=== PATIENT | male | born 1935 | race Caucasian/White ===

== ENCOUNTER 2017-03-11 17:05 | Inpatient (IN) ==
[2017-03-11] MEDS ORDERED: ASPIRIN PO STA (17:23)
[2017-03-11 17:46] LABS: MANUAL DIFF NEEDED? NO
[2017-03-11] MEDS ORDERED: ROCEPHIN 1 GM/NS 1 GM/50 ML IVPB IV ONE (17:46)
[2017-03-11 17:50] LABS: BASO% 0.3 % (0.0-0.8); EOS# 0.14 X1000 (0.0-0.7); EOS% 1.2 % (0.0-10.0); HEMATOCRIT 42.1 % (42.0-52.0); LYMPH# 1.42 X1000 (1.2-3.4); LYMPH% 11.9 % (20.5-51.1); MCHC 33.3 g/dL (33-37); MCV 93.1 FL (81-99); MONO# 0.86 X1000 (0.11-0.59); MONO% 7.2 % (1.7-9.3); MPV 10.6 FL (7.4-10.4); NEUT% 79.4 % (42.2-75.2); PLT 178 X1000 (130-400); RBC 4.52 XMIL (4.7-6.1)
--- NOTE | 2017-03-11 17:56 | Diag Imaging Result Doc PS360 ---
EXAM: CHEST-PORTABLE - 03/11/2017 HISTORY: sob TECHNIQUE: Portable chest 1735 COMPARISON: 01/21/2013 FINDINGS: Heart size is normal. There is a transvenous cardiac pacemaker. There is stable mild tortuosity of the thoracic aorta. There is apparent atelectasis or infiltrate in the medial right base. There is no pleural effusion or pneumothorax identified. There are COPD/emphysematous changes with mildly hyperexpanded lungs. IMPRESSION: COPD/emphysematous changes with mildly hyperexpanded lungs. Apparent atelectasis or infiltrate at medial right base. Electronically signed by Ulysses Ewing 03/11/2017 5:54 PM
[2017-03-11 17:58] LABS: INR 1.8; PROTIME 19.6 Seconds (9.2-11.7); PTT 34.8 Seconds (22.0-36.0)
[2017-03-11 18:08] LABS: AGAP 14; ALBUMIN 4.2 g/dL (3.5-5.0); ALKALINE PHOSPHATASE 64 U/L (32-122); BUN 17 mg/dL (8-22); CHLORIDE 98 mmol/L (98-107); CK PROFILE 61 U/L (24-204); COSMO 279; GOT 13 U/L (10-34); GPT 12 U/L (10-44); MAGNESIUM 1.8 mg/dL (1.5-2.7); POTASSIUM 4.1 mmol/L (3.5-5.1); SODIUM 139 mmol/L (136-145); TCO2 27 mmol/L (25-35); TOTAL BILIRUBIN 0.93 mg/dL (0.20-1.00); TOTAL PROTEIN 7.6 g/dL (6.3-8.3)
[2017-03-11 18:36] LABS: ALLEN TEST YES; BLOOD TYPE ARTERIAL; DRAW SITE R RADIAL; O2(CT) 17.6 mL/dL (15.0-23.0); PCO2(98.6) 45 mmHg (35-45); PO2(98.6) 74 mmHg (60-100); SAMPLE BLOOD; SAO2 97.9 % (95.0-100.0); THB 13.1 g/dL (11.5-17.4); pH(98.6) 7.42 (7.35-7.45)
[2017-03-11 18:37] LABS: MODALITY CANNULA
[2017-03-11] MEDS ORDERED: ZITHROMAX 500 MG/NS 500 MG/250 ML IVPB IV ONE (18:39)
[2017-03-11] MEDS ORDERED: DUONEB (A & A) INH ONE (18:40)
[2017-03-11] MEDS ORDERED: SOLU-MEDROL IV ONE (18:40)
--- NOTE | 2017-03-11 21:35 | HISTORY AND PHYSICAL ---
PRIMARY CARE PHYSICIAN: Dr. Abiodun Love CHIEF COMPLAINT: Dyspnea and cough. HISTORY OF PRESENT ILLNESS: Mr. Valero is an 81-year-old male with past medical history of hypertension, hyperlipidemia, atrial fibrillation on Coumadin, BPH, COPD not oxygen dependent and GERD, who comes to the hospital complaining of dyspnea that started this morning. According to the patient, his started coughing a couple of days ago, and today at 3:00 in the morning, the patient woke up with shortness of breath and coughing. Throughout the day, the patient noticed that he was unable to go up the stairs without feeling short of breath. The patient usually walks up to 4 miles with no issues. Therefore, he decided to be checked at Urgent Care. However, his oxygen saturation was 81% and had a temperature of 101.7, and the physician decided to send him to the hospital for further evaluation. The patient states that other than feeling short of breath, weak and dizzy on exertion, he has no other complaints. REVIEW OF SYSTEMS: Negative except as stated above. In the emergency room, the patient was given Rocephin, azithromycin and Solu Medrol. PAST MEDICAL HISTORY: Atrial fibrillation on Coumadin, hypertension, hyperlipidemia, BPH, COPD not oxygen dependent, GERD. PAST SURGICAL HISTORY: Rotator cuff repair in 1979, left elbow surgery last year. ALLERGIES: None. HOME MEDICATIONS: 1. Simvastatin 20 mg tablet oral daily. 2. Omeprazole 20 mg tablet oral daily. 3. Sotalol 80 mg twice a day. 4. Tamsulosin 0.4 mg tablet oral daily. 5. Warfarin 4 mg tablet oral daily. 6. Finasteride 10 mg tablet oral daily. 7. Albuterol 18 g HFA 2 puffs via inhalation every 4 hours p.r.n. FAMILY HISTORY: There is a strong family history on his father's side of [place]. SOCIAL HISTORY: The patient stopped smoking in 1973. He does not drink alcohol and denies using any illicit drugs. DIAGNOSTIC DATA: White blood cell count is 11.9, hemoglobin 14, hematocrit 42, platelets 178. Sodium is 139, potassium 4, BUN is 17, creatinine 0.9. Hepatic panel within normal limits. Troponin negative. INR is 1.8. Chest x-ray shows a possible infiltrate in the right lower lobe. EKG shows sinus rhythm. PHYSICAL EXAMINATION: VITAL SIGNS: Temperature is 101.7, pulse 85, respirations 23, blood pressure 158/93, oxygen saturation 95% on 2 L oxygen. GENERAL: The patient is alert and oriented x3. No acute distress. HEENT: Head is normocephalic and atraumatic. Eyes: PERRL. Moist mucous membranes. NECK: Supple. No JVD. PULMONARY: Well ventilated bilaterally. Minimal scattered wheezing in all lung wang. Good air movement. CARDIOVASCULAR: S1, S2. No rubs, murmurs or gallops. ABDOMEN: Soft, nontender and nondistended. EXTREMITIES: No lower extremity edema. NEUROLOGICAL: Cranial nerves II through XII grossly intact. No focal deficits. PSYCHIATRIC: Normal mood and affect. ASSESSMENT AND PLAN: 1. Pneumonia. Given the patient's history of having a sick contact at home and with his chest x- ray, it is likely that the patient has a pneumonia which is triggering a COPD exacerbation. Therefore, the patient will be continued on ceftriaxone, and he will be started on doxycycline to cover atypicals. The patient is on oxygen at the moment. We will wean his O2 requirement as tolerated. 2. Chronic obstructive pulmonary disease exacerbation. As mentioned above, the patient is on 2 antibiotics, and we will provide DuoNebs p.r.n. and Solu Medrol. 3. Paroxysmal atrial fibrillation. The patient's INR is slightly subtherapeutic. At the moment we will continue his regular dose of 4 mg. We will continue checking INR daily, and also the patient's home medication of sotalol 80 mg twice a day will be continued. 4. Benign prostatic hypertrophy. We will continue the patient's home medications of tamsulosin and finasteride. 5. Gastroesophageal reflux disease. We will continue home medication of omeprazole. cc: Yesica Conde MD
[2017-03-11] MEDS: BETAPACE PO SCH (22:15)
[2017-03-11] MEDS: COUMADIN PO SCH (22:18)
[2017-03-11] MEDS: PROSCAR PO SCH (22:19)
[2017-03-11] MEDS: ZOCOR PO SCH (22:20)
[2017-03-11] MEDS: DUONEB (A & A) INH SCH (23:00)
[2017-03-11] MEDS ORDERED: TYLENOL PO PRN (23:15)
[2017-03-12] MEDS: DOXYCYCLINE 100 MG in NS 250 ML IV SCH ×2 (00:42→11:58)
[2017-03-12] MEDS: FLOMAX PO SCH ×2 (00:42→22:08)
[2017-03-12] MEDS: DUONEB (A & A) INH SCH ×6 (04:25→22:30)
[2017-03-12 06:13] LABS: INR 1.82; PROTIME 19.9 Seconds (9.2-11.7)
[2017-03-12] MEDS: PRILOSEC PO SCH (06:31)
[2017-03-12] MEDS: BETAPACE PO SCH ×2 (08:39→22:08)
[2017-03-12] MEDS: SOLU-MEDROL IV SCH ×2 (08:39→15:30)
[2017-03-12] MEDS ORDERED: FLOMAX PO SCH (09:00)
[2017-03-12] MEDS: ROCEPHIN 1 GM/NS 1 GM/50 ML IVPB IV SCH (15:31)
--- NOTE | 2017-03-12 16:33 | PROGRESS NOTE ---
DATE: 03/12/2017 SUBJECTIVE: This is an 81-year-old who presented with dyspnea and cough, past medical history of hypertension, hyperlipidemia, history of atrial fibrillation, on Coumadin, benign prostatic hypertrophy, COPD and oxygen dependent, gastroesophageal reflux. Comes in the hospital with complaints of dyspnea that started in the morning. According the patient's , started coughing a couple of days ago and then at 3 o'clock this morning woke up, shortness of breath and coughing throughout the day. Noticed he was unable go up stairs without feeling really short of breath. Previously walked about 4 miles with no issues. Decided to urgent care. His oxygen saturation was 81%. Temperature was a 101 degrees. Decided to come here to the hospital. He was admitted with pneumonia, triggering COPD exacerbation. He is fine at rest, but with exertion pretty short of breath. ASSESSMENT AND PLAN: 1. He was put on ceftriaxone and doxycycline and he is on bronchodilators and ceftriaxone 1 g daily. He is on methylprednisone 60 mg IV q.8 hours. Getting albuterol and Atrovent treatments. Also on azithromycin to cover for atypicals. 2. He is on Coumadin for atrial fibrillation and sedimentation rate appears controlled. His ProTime was 19.6. 3. He has a history of hypertension, hyperlipidemia, underlying COPD, but he is not oxygen dependent, gastroesophageal reflux disease. I think I will add a steroid inhaler. Stop his azithromycin and see if we can add some guaifenesin to help with the mucus secretions. cc: Yuri Salvador MD
[2017-03-12] MEDS: NS 1,000 ML IV SCH (17:01)
[2017-03-12] MEDS: ADVAIR 500/50 DISKUS INH SCH (19:45)
[2017-03-12] MEDS: MUCINEX PO SCH (22:07)
[2017-03-12] MEDS: COUMADIN PO SCH (22:08)
[2017-03-12] MEDS: ZOCOR PO SCH (22:08)
[2017-03-12] MEDS: PROSCAR PO SCH (22:08)
[2017-03-13] MEDS: SOLU-MEDROL IV SCH ×3 (00:40→15:35)
[2017-03-13] MEDS: DUONEB (A & A) INH SCH ×6 (02:58→22:32)
[2017-03-13] MEDS: PRILOSEC PO SCH ×2 (05:41→07:40)
[2017-03-13] MEDS: NS 1,000 ML IV SCH ×2 (05:41→18:03)
[2017-03-13 06:14] LABS: INR 2.37; PROTIME 26.3 Seconds (9.2-11.7)
[2017-03-13] MEDS: ADVAIR 500/50 DISKUS INH SCH ×2 (07:59→19:22)
[2017-03-13] MEDS: MUCINEX PO SCH ×2 (09:13→20:46)
[2017-03-13] MEDS: BETAPACE PO SCH ×2 (09:13→20:46)
--- NOTE | 2017-03-13 09:17 | PROGRESS NOTE ---
DATE: 03/13/2017 He does feel better. The cough is looser. Lungs are clear and he can tell a difference. PHYSICAL EXAMINATION: Vital signs: Temperature 98.6 degrees, pulse 60, respirations 17, blood pressure 143/73. Lungs: Are clear in all lung wang. Cardiovascular: Regular rhythm and rate without murmur or S3. Abdomen: Soft. Skin is warm and dry. Urine output is 5000 mL. LAB: Looks good from the 5th. Will repeat lab and a chest x-ray again in the morning. ASSESSMENT AND PLAN: 1. Pneumonia. He is on ceftriaxone. I stopped the doxycycline. Some bronchodilators and he is getting methylprednisone which I think we can taper tomorrow. I started him on a steroid inhaler. Clinically much better. We will check a chest x-ray again tomorrow. 2. He is on Coumadin for atrial fibrillation. Rate is controlled. ProTime was 19.6, will follow. 3. Hypertension. Blood pressure well controlled. General nutrition looks good. 4. Review of his orders, he is on Betapace 80 mg twice a day for his atrial fibrillation and he is on Coumadin 4 mg at bedtime. At present time getting normal saline at 75 mL an hour. We have him on ceftriaxone 1 g daily. 5. I also should mention benign prostatic hypertrophy for which he is on Proscar daily and no new no new complaints in that regard. cc: Yuri Salvador MD
[2017-03-13] MEDS ORDERED: BLISTEX MEDICATED BERRY LIP BALM TOP PRN (11:12)
[2017-03-13] MEDS: ROCEPHIN 1 GM/NS 1 GM/50 ML IVPB IV SCH (15:35)
[2017-03-13] MEDS: ZOCOR PO SCH (20:45)
[2017-03-13] MEDS: COUMADIN PO SCH (20:45)
[2017-03-13] MEDS: PROSCAR PO SCH (20:46)
[2017-03-13] MEDS: FLOMAX PO SCH (20:46)
[2017-03-14] MEDS: SOLU-MEDROL IV SCH ×3 (02:15→20:33)
[2017-03-14] MEDS: DUONEB (A & A) INH SCH ×6 (03:57→22:56)
[2017-03-14] MEDS: PRILOSEC PO SCH ×2 (05:44→06:08)
[2017-03-14 05:57] LABS: HEMATOCRIT 36.5 % (42.0-52.0); HEMOGLOBIN 11.9 g/dL (14.0-18.0); IMM GRAN# 0.04 X1000 (0.0-0.04); IMM GRAN% 0.3 % (0.0-0.5); LYMPH# 0.72 X1000 (1.2-3.4); LYMPH% 4.6 % (20.5-51.1); MANUAL DIFF NEEDED? YES; MCH 30.5 PG (27-31); MCHC 32.6 g/dL (33-37); MCV 93.6 FL (81-99); MONO# 0.55 X1000 (0.11-0.59); MONO% 3.5 % (1.7-9.3); MPV 11.3 FL (7.4-10.4); NEUT% 91.6 % (42.2-75.2); PLT 174 X1000 (130-400)
[2017-03-14 05:58] LABS: INR 2.82; PROTIME 31.6 Seconds (9.2-11.7)
[2017-03-14 06:20] LABS: AGAP 10; BUN 18 mg/dL (8-22); CALCIUM 8.5 mg/dL (8.8-10.2); CHLORIDE 106 mmol/L (98-107); COSMO 289; MAGNESIUM 2.1 mg/dL (1.5-2.7); POTASSIUM 3.9 mmol/L (3.5-5.1); SODIUM 143 mmol/L (136-145); TCO2 27 mmol/L (25-35)
[2017-03-14 07:23] LABS: BANDS 4 % (0-1); LYMPHS 2 % (21-51); MONO 2 % (1-9)
[2017-03-14] MEDS: ADVAIR 500/50 DISKUS INH SCH ×2 (07:33→19:45)
--- NOTE | 2017-03-14 08:12 | Diag Imaging Result Doc PS360 ---
EXAM: CHEST-2 VIEWS HISTORY: pneumonia TECHNIQUE: Two views of the chest COMMENT: There is COPD. There is subsegmental atelectasis in the lingula. This was not apparent on 03/11/2017. IMPRESSION: Lingular atelectasis. COPD. Electronically signed by Matthew Marmolejo 03/14/2017 8:10 AM
[2017-03-14] MEDS: BETAPACE PO SCH ×2 (08:40→20:34)
[2017-03-14] MEDS: MUCINEX PO SCH ×2 (08:40→20:33)
[2017-03-14] MEDS: NS 1,000 ML IV SCH (08:49)
--- NOTE | 2017-03-14 15:14 | PROGRESS NOTE ---
DATE: 03/14/2017 SUBJECTIVE: This patient feels better. He is complaining of shortness of breath with physical activity. He has never been on oxygen at home before. He has scattered wheezing. He is on steroids IV but I will decrease the dose. OBJECTIVE: Vital Signs: Temperature 97.6 degrees, pulse 71, respiratory rate 16, blood pressure 156/70. O2 saturation 86 on room air and 95 on 2 L of nasal cannula. HEENT: Head normocephalic. No trauma. PERRLA. Neck: Supple. No JVD. No masses. Central trachea. Chest: Decreased breath sounds globally. Prolonged expiratory phase with scattered wheezing. Abdomen: Soft, nontender, nondistended. No hepatosplenomegaly. Extremities: No edema. No clubbing. No cyanosis. Neurological: The patient is alert and oriented x3. No focal neurological deficits. LABORATORY: WBC 15.6, hemoglobin 11.9, hematocrit 36.5, platelets 174,000. Sodium 143, potassium 3.9, chloride 106, bicarbonate 27, BUN 18, creatinine 0.8, glucose 143, calcium 8.5, magnesium 2.1. ASSESSMENT AND PLAN: 1. Pneumonia. Continue with antibiotics. This patient is on ceftriaxone and azithromycin. 2. COPD with mild exacerbation. This patient has been placed on steroids. I will decrease the dose from 60 q.8 hours to 40 q.12 hours and probably I will discharge this patient home with steroids. His O2 saturation without oxygen is around 86. I will re-evaluate this patient tomorrow to decide if this patient needs to go home with oxygen. 3. Atrial fibrillation, continue with Coumadin rate control. INR is therapeutic. 4. Hypertension. Blood pressure is controlled. Today he had and just 1 episode of increased blood pressure but otherwise he has been stable. 5. BPH. Continue with the same treatment. cc: Darrius Stauffer MD
[2017-03-14] MEDS: ROCEPHIN 1 GM/NS 1 GM/50 ML IVPB IV SCH (16:51)
[2017-03-14] MEDS: ZITHROMAX 500 MG/NS 500 MG/250 ML IVPB IV SCH (18:43)
[2017-03-14] MEDS: COUMADIN PO SCH (20:33)
[2017-03-14] MEDS: FLOMAX PO SCH (20:34)
[2017-03-14] MEDS: ZOCOR PO SCH (20:34)
[2017-03-14] MEDS: PROSCAR PO SCH (20:34)
[2017-03-15] MEDS: DUONEB (A & A) INH SCH ×6 (03:18→23:25)
[2017-03-15 06:12] LABS: HEMATOCRIT 37.8 % (42.0-52.0); HEMOGLOBIN 12.5 g/dL (14.0-18.0); IMM GRAN# 0.05 X1000 (0.0-0.04); IMM GRAN% 0.4 % (0.0-0.5); LYMPH# 0.84 X1000 (1.2-3.4); LYMPH% 7.4 % (20.5-51.1); MANUAL DIFF NEEDED? YES; MCH 30.8 PG (27-31); MCHC 33.1 g/dL (33-37); MCV 93.1 FL (81-99); MONO# 0.55 X1000 (0.11-0.59); MONO% 4.8 % (1.7-9.3); NEUT% 87.4 % (42.2-75.2); PLT 174 X1000 (130-400); RBC 4.06 XMIL (4.7-6.1)
[2017-03-15 06:31] LABS: AGAP 11; BUN 15 mg/dL (8-22); CALCIUM 8.1 mg/dL (8.8-10.2); CHLORIDE 105 mmol/L (98-107); COSMO 289; POTASSIUM 3.9 mmol/L (3.5-5.1); SODIUM 144 mmol/L (136-145); TCO2 28 mmol/L (25-35)
[2017-03-15] MEDS: NS 1,000 ML IV SCH (06:55)
[2017-03-15] MEDS: PRILOSEC PO SCH (06:56)
[2017-03-15] MEDS: BETAPACE PO SCH ×2 (06:56→18:42)
[2017-03-15 07:17] LABS: LYMPHS 10 % (21-51); MONO 6 % (1-9)
[2017-03-15] MEDS: ADVAIR 500/50 DISKUS INH SCH ×2 (08:06→19:25)
[2017-03-15] MEDS: MUCINEX PO SCH ×2 (10:11→23:50)
[2017-03-15] MEDS: SOLU-MEDROL IV SCH ×2 (10:11→23:50)
[2017-03-15] MEDS: APRESOLINE PO SCH ×3 (10:12→23:49)
--- NOTE | 2017-03-15 11:58 | PROGRESS NOTE ---
DATE: 03/15/2017 SUBJECTIVE: This patient feels much better. He is still having cough, mild generalized weakness, and high blood pressure. OBJECTIVE: Vital Signs: Temperature 97.7 degrees, pulse 60, respiratory rate 18, blood pressure 182/105, oxygen saturation 87 on room air. HEENT: Head normocephalic. No trauma. PERRLA. Neck: Supple. No JVD. No masses. Central trachea. Chest: Decreased breath sounds globally. Prolonged expiatory phase with scattered wheezing but compared with yesterday much better. Abdomen: Soft, nontender, nondistended. No hepatosplenomegaly. Extremities: No edema. No clubbing. No cyanosis. Neurological Examination: The patient is alert and oriented x3. No focal deficits. Laboratory: WBC 11.4, hemoglobin 12.5, hematocrit 37.8, platelets 174,000. Sodium 144, potassium 3.9, chloride 105, bicarbonate 28, BUN 15, creatinine 0.7, glucose 125, calcium 8.1. ASSESSMENT AND PLAN: 1. Pneumonia. Continue with antibiotics. This patient is on ceftriaxone and azithromycin. 2. Chronic obstructive pulmonary disease with mild exacerbation. This patient has been placed on steroids. Yesterday, decreased the dose of steroids from 60 every 8 hours to 40 every 12 hours. Today, I will cut the dose to 20 every 12 hours. This patient has been having low oxygen saturation without oxygen. Tomorrow, this patient will walk without oxygen to see if he needs oxygen at home. 3. Atrial fibrillation. Continue with Coumadin. Rate controlled. INR is therapeutic. 4. Hypertension. Blood pressure has been elevated. I have stopped the intravenous fluids. He was on normal saline. I started this patient on hydralazine. He is on sotalol as well. 5. Benign prostatic hypertrophy. Continue with the same treatment. cc: Darrius Stauffer MD
[2017-03-15] MEDS: ZITHROMAX 500 MG/NS 500 MG/250 ML IVPB IV SCH (15:41)
[2017-03-15] MEDS: ROCEPHIN 1 GM/NS 1 GM/50 ML IVPB IV SCH (16:25)
[2017-03-15] MEDS ORDERED: ZOCOR PO SCH (18:30)
[2017-03-15] MEDS ORDERED: PROSCAR PO SCH (18:30)
[2017-03-15] MEDS ORDERED: FLOMAX PO SCH (18:30)
[2017-03-15] MEDS ORDERED: COUMADIN PO SCH (18:30)
[2017-03-16] MEDS: DUONEB (A & A) INH SCH ×3 (03:41→11:18)
[2017-03-16] MEDS: BETAPACE PO SCH (06:25)
[2017-03-16] MEDS: PRILOSEC PO SCH (06:25)
[2017-03-16 06:34] LABS: HEMATOCRIT 40.1 % (42.0-52.0); HEMOGLOBIN 13.1 g/dL (14.0-18.0); IMM GRAN# 0.07 X1000 (0.0-0.04); IMM GRAN% 0.7 % (0.0-0.5); INR 2.6; LYMPH# 0.85 X1000 (1.2-3.4); LYMPH% 8.1 % (20.5-51.1); MANUAL DIFF NEEDED? YES; MCH 30.7 PG (27-31); MCHC 32.7 g/dL (33-37); MCV 93.9 FL (81-99); MONO# 0.64 X1000 (0.11-0.59); MONO% 6.1 % (1.7-9.3); MPV 11.1 FL (7.4-10.4); NEUT% 85.1 % (42.2-75.2); PLT 176 X1000 (130-400); RBC 4.27 XMIL (4.7-6.1)
[2017-03-16 06:40] LABS: AGAP 9; BUN 17 mg/dL (8-22); CALCIUM 8.1 mg/dL (8.8-10.2); CHLORIDE 102 mmol/L (98-107); COSMO 286; SODIUM 142 mmol/L (136-145); TCO2 31 mmol/L (25-35)
[2017-03-16 07:28] LABS: LYMPHS 10 % (21-51); MONO 4 % (1-9)
[2017-03-16] MEDS: ADVAIR 500/50 DISKUS INH SCH (07:57)
[2017-03-16] MEDS ORDERED: COZAAR PO SCH (09:00)
[2017-03-16] MEDS: APRESOLINE PO SCH (10:03)
[2017-03-16] MEDS: MUCINEX PO SCH (10:03)
[2017-03-16] MEDS: SOLU-MEDROL IV SCH (10:04)
[2017-03-16 11:20] VITALS: BP 120/73
[2017-03-16] MEDS ORDERED: MEDROL DOSEPAK PO SCH (11:30)
[2017-03-16] MEDS ORDERED: VENTOLIN HFA INH PRN (11:33)
[2017-03-16] MEDS ORDERED: APRESOLINE PO SCH (14:00)
[2017-03-16] MEDS ORDERED: MEDROL PO SCH (16:00)
--- NOTE | 2017-03-16 18:04 | DISCHARGE SUMMARY ---
ADMISSION DATE: 03/11/2017 DISCHARGE DATE: 03/16/2017 CONSULTATIONS: None. PERTINENT PROCEDURES: 1. Chest x-ray showed COPD, emphysematous changes with mildly hyperexpanded lungs. Apparent atelectasis or infiltrate at medial right base. 2. Follow up chest x-ray showed lingular atelectasis, COPD. DISCHARGE DIAGNOSES: 1. Pneumonia. The patient will continue with p.o. antibiotics. Steroid dose pack and breathing treatments at home. He has been qualified for home O2. 2. Atrial fibrillation. The patient will continue on Coumadin. He is rate controlled. INR is therapeutic. 3. Hypertension uncontrolled. Initiated on hydralazine. Improved. 4. Benign prostatic hypertrophy. Continue on Flomax. HOSPITAL COURSE: Mr. Valero is an 81-year-old male who carries a past medical history of hypertension, hyperlipidemia, atrial fibrillation, on Coumadin therapy, BPH, COPD, not O2 dependent. He went to the ED complaining of dyspnea that started on the same morning of his admission. Throughout the day he was unable to go up the stairs without feeling short of breath. He is usually able to walk 4 miles without any issues. He decided to go to the urgent care. However his O2 saturations were 81%. He had a temperature of 101.7 degrees. Physician sent him to the ED for further evaluation. He also complained of feeling weak and dizzy on exertion but no other complaints. He was admitted for pneumonia and started on IV antibiotics, supplemental O2, bronchodilators and IV steroids. Continued on his home Coumadin and other home medications. Clinically, the patient did improve however he was still complaining of shortness of breath with any type of physical activity. We did have respiratory check his O2 saturation while walking in the [place]. He did qualify for home O2. He is being discharged home today with home O2, p.o. antibiotics, Medrol dose pack and his home inhalers as well as added Apresoline for adjustments in his hypertension medication. VITAL SIGNS AT TIME OF DISCHARGE: Temperature was 98.3 degrees, heart rate 59, respirations 20, blood pressure 120/73, O2 is 98% on 2 L nasal cannula. DISCHARGE DIET: Regular. DISCHARGE MEDICATIONS: 1. Atenolol inhaler 2 puffs inhaled q.4 hours p.r.n. 2. Zithromax 250 mg p.o. daily. 3. Proscar 10 mg p.o. at bedtime. 4. Mucinex 600 mg p.o. q.12 hours. 5. Apresoline 25 mg p.o. at 0800 hours, 1400 hours and 2100 hours. 6. Cozaar 25 mg p.o. daily. 7. Medrol Dosepak. 8. Prilosec 20 mg p.o. daily. 9. Zocor 20 mg p.o. at bedtime. 10. Betapace 80 mg p.o. q.12 hours. 11. Tamsulosin 0.4 mg p.o. daily. 12. Spiriva 1 puff inhaled RT daily. 13. Coumadin 4 mg p.o. at bedtime. DISPOSITION: Mr. Quinn is being discharged home with home O2. DISCHARGE INSTRUCTIONS: He can follow up with his primary care physician, Dr. 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 As instructed, he can return to the ED for any worsening of symptoms. DISCHARGE TIME: Thirty minutes. Dictated by OZ Rivera for Darrius Stauffer MD cc: MD Abiodun Alicea DO
[2017-03-17] MEDS ORDERED: SPIRIVA INH SCH (07:30)
[2017-03-17] MEDS ORDERED: MEDROL PO SCH ×2 (08:00→12:00)
[2017-03-17] MEDS ORDERED: ZITHROMAX PO SCH (09:00)
[2017-03-18] MEDS ORDERED: MEDROL PO SCH (08:00)
[2017-03-19] MEDS ORDERED: MEDROL PO SCH (08:00)
[2017-03-20] MEDS ORDERED: MEDROL PO SCH (08:00)
[2017-03-21] MEDS ORDERED: MEDROL PO ONE (09:00)
--- NOTE | 2017-03-21 12:35 | PROVIDER DOCUMENTATION ---
This chart was entered by Rita Hernandez Scribe, acting as scribe for Scott Noriega MD. HPI-Respiratory General - General Source: patient <Gus Hurst - Last Filed: 03/14/17 08:31> - General Source: patient - History of Present Illness-Resp Quality of Pain: reports: none Severity in ED: reports: mild Onset/Duration: reports: unsure Timing: reports: still present Exposure: reports: unknown cause Cough Quality/Degree: reports: moderate Episode Frequency: occasional episodes Modifying Factors: improves with: coughing Associated Symptoms: reports: cough, shortness of breath Similar Symptoms Previously?: Yes Recently seen or treated by another doctor?: Yes <Scott Noriega I - Last Filed: 03/21/17 12:35> - General Stated Complaint: COUGH Time Seen by Provider: 03/11/17 17:16 Allergies/Adverse Reactions: Patient Allergies Allergy/AdvReac Type Severity Reaction Status Date / Time No Known Allergies Allergy Verified 01/20/13 04:55 Home Medications: Home Medication List Medication Instructions Recorded Confirmed Last Taken Type Simvastatin [Zocor] 20 mg PO QHS 01/20/13 03/11/17 03/10/17 18:30 History Finasteride [Proscar] 10 mg PO QHS #0 tablet 08/04/16 03/11/17 03/10/17 18:30 Rx Omeprazole [Prilosec] 20 mg PO DAILY@0700 #0 capsule 08/04/16 03/11/17 03/11/17 07:30 Rx Sotalol [Betapace] 80 mg PO Q12H #60 tablet 08/04/16 03/11/17 03/11/17 07:30 Rx Tamsulosin [Flomax] 0.4 mg PO DAILY #0 capsule 08/04/16 03/11/17 03/10/17 18:30 Rx Warfarin [Coumadin] 4 mg PO QHS #0 tablet 08/04/16 03/11/17 03/10/17 18:30 Rx Albuterol Sulfate [Ventolin Hfa] 2 puff INH Q4H PRN 03/11/17 03/11/17 03/11/17 07:30 History Azithromycin [Zithromax] 250 mg PO DAILY #3 tablet 03/16/17 Unknown Rx Guaifenesin E.r. [Mucinex] 600 mg PO Q12HR #10 tablet 03/16/17 Unknown Rx Hydralazine [Apresoline] 25 mg PO 0800,1400,2100 #90 tablet 03/16/17 Unknown Rx Losartan [Cozaar] 25 mg PO DAILY #90 tablet 03/16/17 Unknown Rx Methylprednisolone [Medrol Dosepak] 4 mg PO DIRECTED #1 package 03/16/17 Unknown Rx Tiotropium [place] Inhaler 1 puff INH RTDAILY #1 inhaler 03/16/17 Unknown Rx [Spiriva] - History of Present Illness-Resp Nature of Presenting Problem: Pt is a 81 year old male who came to the ED with a cc of cough and SOB. Pt reports he has COPD and trouble breathing. (Rita Hernandez) Pt is a 81 year old male who came to the ED with a cc of cough and SOB. Pt reports he has COPD and trouble breathing. (Scott Noriega I) Review of Systems - Adult - REVIEW OF SYSTEMS - ADULT Constitutional: denies: fever <Gus Hurst - Last Filed: 03/14/17 08:31> - REVIEW OF SYSTEMS - ADULT Constitutional: denies: chills, fever Eyes: reports: no symptoms reported Ears, Nose, Mouth & Throat: reports: no symptoms reported Cardiovascular: denies: chest pain, syncope Respiratory: reports: cough, shortness of breath, wheezing. denies: dyspnea on exertion, hemoptysis Gastrointestinal: denies: abdominal pain, diarrhea, nausea, vomiting Genitourinary: reports: no symptoms reported Musculoskeletal: reports: no symptoms reported Integumentary: denies: mole changes, skin thickening Neurological: reports: no symptoms reported Psychiatric: reports: no symptoms reported Endocrine: reports: no symptoms reported Hematologic/Lymphatic: reports: no symptoms reported Allergic/Immunologic: reports: no symptoms reported All Other Systems: Reviewed and Negative <Scott Noriega I - Last Filed: 03/21/17 12:35> Past History - Adult - PAST MEDICAL HISTORY-ADULT Review of Records: reports: Old Records Reviewed, Nursing Assessment Review, Medications Reviewed, Social history reviewed & non-contributory. <Gus Hurst - Last Filed: 03/14/17 08:31> - PAST MEDICAL HISTORY-ADULT Review of Records: reports: Old Records Reviewed, Nursing Assessment Review Major Childhood Illnesses: reports: denies history Cardiovascular: reports: A-Fib, CAD, hyperlipidemia Respiratory: reports: COPD Gastrointestinal: reports: GERD Obstetrical/Gynecological: reports: denies history Genitourinary: reports: denies history Musculoskeletal: reports: denies history Neurological: reports: denies history Endocrine/Immune: reports: denies history Other Conditions: reports: denies history - IMMUNIZATION STATUS Childhood Immunizations: See Nurse Assessment Flu Vaccine: See Nurse Assessment - FAMILY HISTORY Family History: reviewed, not pertinent <Scott Noriega I - Last Filed: 03/21/17 12:35> Physical Exam-General - PHYSICAL EXAM-ADULT Initial Vital Signs Reviewed: Yes - CONSTITUTIONAL General Appearance: appears well, alert, no apparent distress <Gus Hurst - Last Filed: 03/14/17 08:31> - PHYSICAL EXAM-ADULT Initial Vital Signs Reviewed: Yes - CONSTITUTIONAL General Appearance: appears well, alert, no apparent distress - EYES Eyes: PERRL/EOMI, pink conjunctivae - HEAD, EARS, NOSE, MOUTH & THROAT HENMT: normocephalic/atraumatic, moist mucous membranes - NECK Neck: non-tender, full range of motion - RESPIRATORY Respiratory: chest non-tender, crackles - CARDIOVASCULAR Cardiovascular: normal peripheral pulses, regular rate, rhythm - GASTROINTESTINAL (ABDOMEN) Abdominal Exam: normal bowel sounds, non tender, soft - MUSCULOSKELETAL Back Exam: normal inspection, no CVA tenderness Extremity: non-tender - SKIN Integumentary: other (left chest pearlly lesion size of a micaela w/ telangiectasias) - NEUROLOGIC Neurologic: grossly normal - PSYCHIATRIC Psych/Mental Status: normal mood/affect, normal thought content, normal thought process, oriented x 3 <Scott Noriega I - Last Filed: 03/21/17 12:35> Progress - PLAN OF CARE/RESULTS Result Diagrams: 03/11/17 17:30 03/11/17 17:30 - EKG 1 Time of EKG reading by physician:: 18:48 EKG Interpretation (*Must complete 3 of following elements*): Normal Rate: 86 Rhythm: sinus [place]: normal QRS: normal [place] Interval: normal ST Wave: normal - XRAY 1 XRAY Study: Chest Impression: Abnormal (COPD, ? early RLL infiltrate) <Gus Hurst - Last Filed: 03/14/17 08:31> - PLAN OF CARE/RESULTS Result Diagrams: 03/16/17 05:30 03/16/17 05:30 - CHANGE OF SHIFT REPORT (ED Provider) Report Given and Care Transferred to:: Dr. Knapp Time of Transfer: 17:45 Items Pending: Labs, Other <Scott Noriega I - Last Filed: 03/21/17 12:35> Departure - Departure Date of Disposition Decision: 03/11/17 Time of Disposition Decision: 18:47 Certified Medical Emergency: Emergent - Critical Care Note This patient required my direct & personal management of CC.: No <Gus Hurst - Last Filed: 03/14/17 08:31> - Departure Date of Disposition Decision: 03/11/17 Time of Disposition Decision: 18:47 Certified Medical Emergency: Emergent - Critical Care Note This patient required my direct & personal management of CC.: No <Scott Noriega I - Last Filed: 03/21/17 12:35> - Departure DIAGNOSIS: Pneumonia Disposition: ADMITTED INPATIENT 09 Condition: Good Attestation - Physician/ MELISA Attestation Patient care was provided by Advanced Practice Provider:: No The physician spent face to face time with patient:: Yes Advanced Practice Provider documentation review:: Supervising physician onsite and consulted in the evaluation and care of this patient. The physician did have a face to face encounter with the patient. <Gus Hurst - Last Filed: 03/14/17 08:31> - Physician/ MELISA Attestation The physician spent face to face time with patient:: Yes Advanced Practice Provider documentation review:: Supervising physician onsite and consulted in the evaluation and care of this patient. The physician did have a face to face encounter with the patient. <Scott Noriega I - Last Filed: 03/21/17 12:35> This chart was documented by the indicated scribe, (Rita Hernandez Scribe) and accurately reflects the services I performed and decisions made by Hari loomis Christophe I, MD, as attested by the provider's signature.
== END 2017-03-16 13:13 | disposition home or self-care (01) ==
LOC: ED 17:05 → SUATTDRO 17:06 → 4N 17:06
PROVIDERS: ATTEND Internal Medicine